=== PATIENT | male | born 1935 | race Caucasian/White ===

== ENCOUNTER 2016-09-10 09:41 | Emergency (ER) | payer MEDICARE ==
--- NOTE | 2016-09-10 10:34 | RAD ---
Exams: Two-view chest and two-view left RIBS COMPARISON: Chest radiograph 10/04/2013 INDICATION: Fall one week ago landing on left side, left anterior rib pain. TECHNIQUE: PA and lateral views the chest and AP and oblique views of left ribs were obtained. FINDINGS: Postsurgical changes of median sternotomy are again appreciated. Cardiac silhouette is within normal limits and stable. Lungs are normally inflated. There is minor bibasilar atelectasis. There is no pleural effusion or pneumothorax. No acute displaced left rib fracture is identified. There is a subtle lucency noted within the left anterior sixth rib on the oblique view, and minor irregularity of the left fifth rib in this location as well. Bridging osteophytes are noted within the thoracic spine. IMPRESSION: 1. Probable nondisplaced fractures within the left anterior fifth and sixth ribs. 2. Minor bibasilar atelectasis.
== END 2016-09-10 11:25 | disposition home or self-care (01) ==
LOC: ED 09:41
DX: S22.42XA Multiple fractures of ribs, left side, initial encounter for closed fracture (principal); I25.2 Old myocardial infarction; W10.9XXA Fall (on) (from) unspecified stairs and steps, initial encounter; Y92.9 Unspecified place or not applicable